=== PATIENT | female | born 2000 | race Caucasian/White ===

== ENCOUNTER 2021-12-08 15:01 | Emergency (ER) | payer OTHER, SELFPAY ==
--- NOTE | ~2021-12-08 | CT_ITS ---
EXAMINATION: CT abdomen pelvis w con DATE: 12/08/2021 17:14 INDICATION: Left lower quadrant abdominal pain TECHNIQUE: Computed tomography (CT) of the abdomen and pelvis was performed with 100 mL Omnipaque-350 intravenous contrast. Automated exposure control and iterative reconstruction technique were employe d. The dose-length product was 1592.11 mGy-cm. COMPARISON: None FINDINGS: Lung bases are clear. Heart size is normal. No pericardial or pleural effusion. Diffuse hepatic steat osis with focal sparing along the gallbladder fossa. Gallbladder, spleen, pancreas, bilateral adrenal glands and kidneys are normal. Bladder, anteverted uterus and bilateral adnexa are unremarkable. Titus els including the appendix are normal. No free intraperitoneal gas or fluid. No pathologically enlarg ed abdominal or pelvic lymphadenopathy. L5 spondylolysis bilaterally pars interarticularis defects 9 mm anterolisthesis on S1 and associated advanced degenerative disc disease. Bones are otherwise unrem arkable. IMPRESSION: 1. No acute intra-abdominal/pelvic process. 2. Diffuse hepatic steatosis. 2. L5 spondylolysis with 9 mm anterolisthesis on S1 and associated advanced L5-S1 degenerative disc d isease. Reviewed, dictated and finalized at [facility]. IMPRESSION: 1. No acute intra-abdominal/pelvic process. 2. Diffuse hepatic steatosis. 2. L5 spondylolysis with 9 mm anterolisthesis on S1 and associated advanced L5- S1 degenerative disc disease.
[2021-12-08 15:05] VITALS: BP 174/114; PULSE 93; RESP 16; TEMP 36.1; O2SAT 99
--- NOTE | 2021-12-08 15:31 | ED.FEMALEGU ---
HPI - Female Genitourinary General Chief complaint: Vaginal Bleeding Stated complaint: menstrual pain and bleeding Time Seen by Provider: 12/08/21 15:08 History of Present Illness HPI Narrative: 21-year-old female no medical problems presents emergency room for heavy vaginal bleeding. Patient states that she is currently on her menses, and has been since Sunday. Reports heavier than normal vaginal bleeding, reportedly saturating 4 pads an hour. Patient has no known history of dysfunctional uterine bleeding or PCOS. Denies any vaginal trauma. Denies being on any hormone therapy. Patient denies shortness of breath, dizziness or lightheadedness. Reports monthly menstrual cycles that are normally 7 to 10 days in length. Related Data Allergies Allergy/AdvReac Type Severity Reaction Status Date / Time No Known Allergies Allergy Verified 12/08/21 15:51 Review of Systems Review of Systems: CONSTITUTIONAL: Denies fever, chills, or sweats. EYES: Denies visual changes, redness, or discharge. ENT: Denies rhinorrhea, congestion, sore throat, or otalgia. CARDIOVASCULAR: Denies chest pain, palpitations, or edema. RESPIRATORY: Denies cough or dyspnea. GASTROINTESTINAL: Denies abdominal pain, nausea, vomiting, or diarrhea. GENITOURINARY: Reports vaginal bleeding SKIN: Denies rash or itching. MUSCULOSKELETAL: Denies back pain, joint pain, or myalgia. NEUROLOGIC: Denies headache, numbness, dizziness, or weakness. PSYCHIATRIC: Denies anxiety or depression. Exam Narrative: GENERAL: Well-appearing, well-nourished, no physical limitations, and in no acute distress. HEAD: Normocephalic, atraumatic. EYES: Conjunctivae normal, PERRLA and EOMI. CHEST: Clear to auscultation. No respiratory distress. No wheezes rales or rhonchi. No tenderness. HEART: Regular rate and rhythm. No murmur heard. Normal peripheral pulses. ABDOMEN: Soft, left lower quadrant tenderness, nondistended, normal active bowel sounds. : Small amount of clotted blood in the vaginal canal. No obvious trauma. Cervical os was closed. Vaginal rugae was pink. No masses or lesions rashes noted. BACK: No CVA tenderness EXTREMITIES: Normal range of motion. No edema. No clubbing or cyanosis SKIN: Warm, dry, no rash. No noted wounds NEURO: No focal deficits. Alert and oriented x3. FEMI. CN's II-XI intact bilaterally, normal gait PSYCH: Cooperative. Normal mood and affect. Course Vital Signs Vital signs: Vital Signs Temperature 36.1 C L 12/08/21 15:05 Pulse Rate 93 12/08/21 15:05 Respiratory Rate 16 12/08/21 15:05 Blood Pressure 174/114 H 12/08/21 15:05 Pulse Oximetry 99 12/08/21 15:05 Oxygen Delivery Room Air 12/08/21 15:05 Temperature 36.8 C 12/08/21 17:50 Pulse Rate 83 12/08/21 17:50 Respiratory Rate 18 12/08/21 17:50 Blood Pressure 169/100 H 12/08/21 17:50 Pulse Oximetry 98 12/08/21 17:50 Oxygen Delivery Room Air 12/08/21 15:05 MDM - Female Genitourinary Lab Data Result diagrams: 12/08/21 15:44 12/08/21 15:44 Labs: Lab Results 12/08/21 12/08/21 12/08/21 Range/Units 15:44 15:44 16:57 WBC 7.0 (4.5-10.0) K/mm3 RBC 4.73 (4.2-5.4) M/mm3 Hgb 14.0 (12.0-15.0) g/dL Hct 41.1 (37.0-47.0) % MCV 86.9 (80-100) fl MCH 29.6 (26-34) pg MCHC 34.1 (32-36) g/dl RDW 13.8 (11.5-14.5) % Plt Count 281 (150-375) k/mm3 MPV 8.6 (7.4-10.4) fl Immature Gran % (Auto) 0.3 (0-0.5) % Neut % (Auto) 54.4 (45.5-73.1) % Lymph % (Auto) 35.5 (18.3-44.2) % Atlantic % (Auto) 6.8 (2.6-8.5) % Eos % (Auto) 2.6 (0-4.4) % Baso % (Auto) 0.4 (0.2-1.2) % Lymph # (Auto) 2.47 (0.9-3.2) K/mm3 Atlantic # (Auto) 0.5 (0.1-0.6) K/mm3 Eos # (Auto) 0.2 (0-0.3) K/mm3 Baso # (Auto) 0.0 (0.0-0.1) K/mm3 Abs Immat Gran (auto) 0.02 (0.00-0.031) K/mm3 Absolute Neuts (auto) 3.8 (1.3-6.7) K/mm3 Absolute Nucleated RBC 0.0 (0.0-0.012) K/mm3 Nucl
[2021-12-08 15:52] LABS: Basophils Percent Auto 0.4 % (0.2-1.2); Eosinophils Absolute Auto 0.2 K/mm3 (0-0.3); Eosinophils Percent Auto 2.6 % (0-4.4); Hematocrit 41.1 % (37.0-47.0); Immature Granulocyte Absolute 0.02 K/mm3 (0.00-0.031); Immature Granulocyte Percent A 0.3 % (0-0.5); Lymphocytes Absolute Auto 2.47 K/mm3 (0.9-3.2); Lymphocytes Percent Auto 35.5 % (18.3-44.2); Mean Corpuscular HGB Conc 34.1 g/dl (32-36); Mean Corpuscular Hemoglobin 29.6 pg (26-34); Mean Corpuscular Volume 86.9 fl (80-100); Mean Platelet Volume 8.6 fl (7.4-10.4); Monocytes Absolute Auto 0.5 K/mm3 (0.1-0.6); Monocytes Percent Auto 6.8 % (2.6-8.5); Neutrophils Absolute Auto 3.8 K/mm3 (1.3-6.7); Neutrophils Percent Auto 54.4 % (45.5-73.1); Platelet Count Result 281 k/mm3 (150-375); Red Blood Count 4.73 M/mm3 (4.2-5.4); Red Cell Distribution Width 13.8 % (11.5-14.5)
[2021-12-08] MEDS: SODIUM CHLORIDE 0.9% IV 1,000 ML 999 ML IV CONT (15:52)
[2021-12-08 16:08] LABS: Alanine Aminotransferase 39 U/L (6-35); Albumin Level 4.6 g/dL (3.5-5.1); Alkaline Phosphatase 72 U/L (38-126); Anion Gap 14 mmol/L (8-16); Aspartate Amino Transferase 37 U/L (14-36); Bilirubin,Total 0.6 mg/dL (0.2-1.3); Blood Urea Nitrogen 11 mg/dL (7-17); Calcium 9.5 mg/dL (8.4-10.2); Carbon Dioxide 22 mmol/L (22-30); Chloride 103 mmol/L (98-107); Estimated CRCL calculation 230 ml/min; Estimated Glomerular Filt Rate > 60; Glucose 203 mg/dL (65-110); Potassium 3.6 mmol/L (3.4-5.0); Sodium 139 mmol/L (137-145)
[2021-12-08 17:00] VITALS: BP 152/99; PULSE 86; RESP 16; TEMP 36.3; O2SAT 99
[2021-12-08 17:09] LABS: Add Urine Microscopic? YES; Appearance Urine Cloudy (Clear); Bilirubin Urine 1+ (Negative); Blood Urine 3+ (Negative); Color Urine Red (Yellow); Glucose Urine UA Negative (Negative); Ketones Urine Trace mg/dL (Negative); Leukocyte Esterase Ur Negative LEU/UL (Negative); Nitrate Urine Negative (Negative); Protein Urine 2+ mg/dL (Negative); Specific Grav Ur >= 1.030 (1.001-1.035); Urobilinogen Urine 0.2 mg/dL (<2.0); pH Urine 5.5 (5.0-9.0)
[2021-12-08 17:14] LABS: Budding Yeast Urine Present /hpf; Mucus Urine Heavy /lpf; RBC Urine >75 /hpf (0-2); Squamous Epithelial Cell Urine Many /hpf (Few)
[2021-12-08 17:50] VITALS: BP 169/100; PULSE 83; RESP 18; TEMP 36.8; O2SAT 98
== END 2021-12-08 18:05 | disposition home or self-care (01) ==
PROVIDERS: Emergency Provider Nurse Practitioner Family; PCP Family Medicine
DX: N92.1 Excessive and frequent menstruation with irregular cycle (principal); B37.3 Candidiasis of vulva and vagina; K76.0 Fatty (change of) liver, not elsewhere classified; M43.06 Spondylolysis, lumbar region; M51.37 Other intervertebral disc degeneration, lumbosacral region
CPT/HCPCS: 36415; 74177; 80053; 81001; 85025; 96360; 99284; J7030; Q9967

== ENCOUNTER 2022-09-06 21:01 | Emergency (ER) | payer OTHER, SELFPAY ==
[2022-09-06 21:26] VITALS: BP 157/102; PULSE 120; RESP 20; TEMP 36.3; O2SAT 98
[2022-09-06 21:41] LABS: Basophils Percent Auto 0.3 % (0.2-1.2); Eosinophils Absolute Auto 0.1 K/mm3 (0-0.3); Eosinophils Percent Auto 1.5 % (0-4.4); Hematocrit 41.8 % (37.0-47.0); Hemoglobin 14.2 g/dL (12.0-15.0); Immature Granulocyte Absolute 0.01 K/mm3 (0.00-0.031); Immature Granulocyte Percent A 0.1 % (0-0.5); Lymphocytes Absolute Auto 2.12 K/mm3 (0.9-3.2); Lymphocytes Percent Auto 24.5 % (18.3-44.2); Mean Corpuscular Hemoglobin 29.2 pg (26-34); Mean Platelet Volume 8.5 fl (7.4-10.4); Monocytes Absolute Auto 0.5 K/mm3 (0.1-0.6); Monocytes Percent Auto 5.5 % (2.6-8.5); Neutrophils Absolute Auto 5.9 K/mm3 (1.3-6.7); Neutrophils Percent Auto 68.1 % (45.5-73.1); Platelet Count Result 297 k/mm3 (150-375); Red Blood Count 4.86 M/mm3 (4.2-5.4); Red Cell Distribution Width 13.1 % (11.5-14.5); White Blood Count 8.7 K/mm3 (4.5-10.0)
[2022-09-06 21:48] LABS: Appearance Urine Turbid (Clear); Bacteria Urine 3+ /hpf; Bilirubin Urine Negative (Negative); Blood Urine Negative (Negative); Color Urine Yellow (Yellow); Glucose Urine UA Negative (Negative); Ketones Urine Negative (Negative); Leukocyte Esterase Ur 1+ LEU/UL (Negative); Nitrate Urine Negative (Negative); Non Pathogenic Casts 0-2; Protein Urine Trace mg/dL (Negative); Specific Grav Ur 1.023 (1.001-1.035); Squamous Epithelial Cell Urine Many /hpf (Few)
[2022-09-06 21:52] LABS: Alanine Aminotransferase 38 U/L (6-35); Albumin Level 4.5 g/dL (3.5-5.1); Alkaline Phosphatase 55 U/L (38-126); Anion Gap 9 mmol/L (8-16); Aspartate Amino Transferase 29 U/L (14-36); Bilirubin,Total 0.5 mg/dL (0.2-1.3); Blood Urea Nitrogen 13 mg/dL (7-17); Carbon Dioxide 27 mmol/L (22-30); Chloride 104 mmol/L (98-107); Estimated CRCL calculation 166 ml/min; Estimated Glomerular Filt Rate > 60; Glucose 222 mg/dL (65-110); Lipase 41 U/L (23-300); Potassium 4.3 mmol/L (3.4-5.0); Sodium 140 mmol/L (137-145)
[2022-09-06 22:13] LABS: Add Urine Microscopic? YES
[2022-09-06] MEDS: SODIUM CHLORIDE 0.9% IV 2,000 ML 999 ML IV CONT (23:21)
[2022-09-06] MEDS: ONDANSETRON INJ 4 MG/2 ML VIAL IV PUSH (23:21)
--- NOTE | 2022-09-06 23:51 | ED.ABDPAIN ---
HPI - Abdominal Pain General Chief Complaint: Abdominal Pain Stated Complaint: abd pain Time Seen by Provider: 09/06/22 23:10 History of Present Illness HPI narrative: This is a 22-year-old female, with past history of diabetes and degenerative disc disease, who presents to the emergency department complaining of diffuse abdominal cramping and pain. The patient states she woke approximately 6 hours ago and noted diffuse abdominal pain and cramping, rated 8/10. This gradually improved to 6/10 on arrival. This is associated with nausea but she denies vomiting. She has been able to pass gas and stool with her most recent bowel movement while here in the emergency department. She admits using marijuana today and denies known sick contacts. Related Data Home Medications Medication Instructions Recorded Confirmed bupropion HCl 150 mg 24 hr tablet, mg PO 09/06/22 extended release buspirone 7.5 mg tablet mg 09/06/22 cyclobenzaprine 10 mg tablet mg 09/06/22 diclofenac sodium 75 mg mg PO 09/06/22 tablet,delayed release dulaglutide 0.75 mg/0.5 mL mg subcut 09/06/22 [facility] glycopyrrolate 1 mg tablet mg 09/06/22 linagliptin 5 mg tablet (Tradjenta) mg 09/06/22 losartan 50 mg tablet mg 09/06/22 pantoprazole 40 mg tablet,delayed mg PO 09/06/22 09/06/22 release semaglutide 3 mg tablet (Rybelsus) mg PO 09/06/22 semaglutide 3 mg tablet (Rybelsus) mg PO 09/06/22 trazodone 50 mg tablet mg 09/06/22 Allergies Allergy/AdvReac Type Severity Reaction Status Date / Time No Known Allergies Allergy Verified 09/06/22 23:01 Review of Systems Review of Systems: CONSTITUTIONAL: Denies fever, chills, or sweats. CARDIOVASCULAR: Denies chest pain, palpitations, or edema. RESPIRATORY: Denies cough or dyspnea. GASTROINTESTINAL: Diffuse abdominal pain, cramping, and nausea denies vomiting, or diarrhea. GENITOURINARY: Denies dysuria or hematuria. SKIN: Denies rash or itching. MUSCULOSKELETAL: Denies back pain, joint pain, or myalgia. NEUROLOGIC: Denies headache, numbness, dizziness, or weakness. PSYCHIATRIC: Denies anxiety or depression. PMFSH Past Medical History Medical History (Updated 09/07/22 @ 03:43 by Kristian Brandt MD) Degenerative disc disease Type 2 diabetes mellitus Social History Social History (Updated 09/06/22 @ 23:54 by Kristian Brandt MD) Smoking status: Never smoker Alcohol intake: current Substance use: current Substance use type: marijuana Exam Narrative: GENERAL: Well-developed, well-nourished, and in no acute distress. HEAD: Normocephalic, atraumatic. EYES: PERRLA and EOMI. ENT: Nares clear, no rhinorrhea or epistaxis. Mucous membranes moist. Oropharynx without tonsillar hypertrophy exudate or other lesions. CHEST: Clear to auscultation. No respiratory distress. No wheezes rales or rhonchi HEART: Regular rate and rhythm. No murmur heard. Normal peripheral pulses. ABDOMEN: Diffuse mild tenderness to palpation, without rebound or guarding, otherwise soft,, nondistended, normal active bowel sounds. No CVA tenderness to palpation. EXTREMITIES: Normal range of motion. No edema. SKIN: Warm, dry, no rash. NEURO: No focal deficits. Alert and oriented x3. PSYCH: Normal mood and affect. Course Course Emergency Course: 23:50 - UA demonstrates white blood cells and RBCs with leukocyte esterase positive but no nitrates and squamous cells. 00:59 - CBC unremarkable. Chemistries demonstrate hyperglycemia with glucose of 222, but is otherwise unremarkable. The patient has not been sexually active with male partners for the past 2 years. My suspicion for is low. I suspect the patient's nausea and vomiting may be related to cannabis hyperemesis versus mild gastroenteritis. Will discharge with primary care follow-up. Discussed return and emergency precautions including signs/symptoms of acute abdomen and bowel obstruction. The patient
[2022-09-07 01:32] VITALS: BP 134/101; PULSE 90; RESP 20; O2SAT 98
[2022-09-07 01:59] VITALS: BP 136/95; PULSE 101; RESP 16; O2SAT 99
== END 2022-09-07 02:01 | disposition home or self-care (01) ==
PROVIDERS: Emergency Provider Preventive Medicine Aerospace Medicine; PCP Family Medicine
DX: K52.9 Noninfective gastroenteritis and colitis, unspecified (principal); R10.84 Generalized abdominal pain; E11.9 Type 2 diabetes mellitus without complications; Z79.85 Long-term (current) use of injectable non-insulin antidiabetic drugs; Z79.84 Long term (current) use of oral hypoglycemic drugs
CPT/HCPCS: 36415; 80053; 81001; 83690; 85025; 87086; 87088; 96361; 96374; 99284; J2405; J7030

== ENCOUNTER 2022-09-30 08:45 | Emergency (ER) | payer OTHER, SELFPAY ==
--- NOTE | ~2022-09-30 | CT_ITS ---
EXAMINATION: CT abdomen pelvis wo con DATE: 09/30/2022 11:19 INDICATION: Left flank pain TECHNIQUE: Computed tomography (CT) of the abdomen and pelvis was performed without intravenous contr ast. Automated exposure control and iterative reconstruction technique were employed. Exam dose: 160 9.14 mGy-cm total exam DLP. COMPARISON: 12/08/2021 CT abdomen pelvis FINDINGS: There is mild patchy left lower lobe and lesser right basilar lower lobe pulmonary infiltra te and/or atelectasis. Normal heart size. No pericardial or pleural effusion. No hepatic, splenic, pancreatic, and adrenal or renal space-occupying mass lesion is detected. There is mild left hydroureteronephrosis and left peripelvic and periureteral fat stranding suggestin g the left pyelonephritis or possibly recently passed renal calculus. No urinary tract calculus is no beth at the kidneys, ureters or urinary bladder. The urinary bladder, uterus and adnexal areas are unr emarkable. Normal caliber of the abdominal aorta. No intraperitoneal or retroperitoneal or pelvic mass lesion or adenopathy or ascites. No bowel obstruction or intraperitoneal free air. Small fat-containing umbilical hernia. Bilateral L4 and L5 pars interarticularis defects. There is borderline grade 2/grade 3 anterolisthesi s and severe degenerative disc disease at L5-S1. IMPRESSION: Mild left hydroureteronephrosis and left peripelvic and periureteral stranding. No urina ry tract calculus is evident. The findings may be due to recently passed left urinary tract calculus or left sided urinary tract infection Bilateral L4 and L5 spondylolysis with borderline grade 2/grade 3 anterolisthesis and severe degenera tive disease at L5-S1 Reviewed, dictated and finalized at [facility]. Reviewed, dictated and finalized at [facility]. IMPRESSION: Mild left hydroureteronephrosis and left peripelvic and periureter al stranding. No urinary tract calculus is evident. The findings may be due to recently passed left urinary tract calculus or left sided urinary tract infecti on Bilateral L4 and L5 spondylolysis with borderline grade 2/grade 3 anterolisthes is and severe degenerative disease at L5-S1
[2022-09-30 08:51] VITALS: BP 145/101; PULSE 120; RESP 18; TEMP 36.5; O2SAT 99
[2022-09-30 09:25] LABS: Basophils Percent Auto 0.4 % (0.2-1.2); Eosinophils Absolute Auto 0.1 K/mm3 (0-0.3); Eosinophils Percent Auto 1.1 % (0-4.4); Hematocrit 42.2 % (37.0-47.0); Hemoglobin 14.2 g/dL (12.0-15.0); Immature Granulocyte Absolute 0.03 K/mm3 (0.00-0.031); Immature Granulocyte Percent A 0.3 % (0-0.5); Immature Platelet Fraction Pct 1.4 % (0.9-11.2); Lymphocytes Absolute Auto 1.75 K/mm3 (0.9-3.2); Lymphocytes Percent Auto 16.5 % (18.3-44.2); Mean Corpuscular HGB Conc 33.6 g/dl (32-36); Mean Corpuscular Hemoglobin 29.1 pg (26-34); Mean Corpuscular Volume 86.5 fl (80-100); Mean Platelet Volume 9.2 fl (7.4-10.4); Monocytes Absolute Auto 0.6 K/mm3 (0.1-0.6); Monocytes Percent Auto 5.6 % (2.6-8.5); Neutrophils Absolute Auto 8.1 K/mm3 (1.3-6.7); Neutrophils Percent Auto 76.1 % (45.5-73.1); Platelet Count Result 380 k/mm3 (150-375); Red Blood Count 4.88 M/mm3 (4.2-5.4); Red Cell Distribution Width 12.7 % (11.5-14.5); White Blood Count 10.6 K/mm3 (4.5-10.0)
[2022-09-30 09:32] LABS: Lactic Acid Reflex 1.5 mmol/L (0.7-2.0)
[2022-09-30 09:42] LABS: Alanine Aminotransferase 29 U/L (6-35); Albumin Level 4.8 g/dL (3.5-5.1); Alkaline Phosphatase 66 U/L (38-126); Anion Gap 7 mmol/L (8-16); Aspartate Amino Transferase 32 U/L (14-36); Bilirubin,Total 0.8 mg/dL (0.2-1.3); Blood Urea Nitrogen 10 mg/dL (7-17); Calcium 9.3 mg/dL (8.4-10.2); Carbon Dioxide 25 mmol/L (22-30); Chloride 105 mmol/L (98-107); Estimated CRCL calculation 189 ml/min; Estimated Glomerular Filt Rate > 60; Glucose 177 mg/dL (65-110); Lipase 38 U/L (23-300); Potassium 4.7 mmol/L (3.4-5.0); Sodium 137 mmol/L (137-145)
--- NOTE | 2022-09-30 10:06 | ED.BACK ---
HPI - Back Pain/Injury General Chief Complaint: Back Pain/Injury Stated Complaint: left flank pain Time Seen by Provider: 09/30/22 08:48 History of Present Illness HPI Narrative: 22-year-old female presented the emergency department for evaluation of left flank pain. Patient reports that the symptoms started approximately 2 days ago and have been worsening. Patient states that she does have a history of kidney stones but thought that the pain may have been related to her chronic back issues. Patient denies any hematuria or pain with urination. Patient has nausea without vomiting. Patient states that the pain is continued to worsen so she presented to the ED for evaluation. Patient was tearful at time of examination. Related Data Home Medications Medication Instructions Recorded Confirmed bupropion HCl 150 mg 24 hr tablet, mg PO 09/06/22 extended release buspirone 7.5 mg tablet mg 09/06/22 cyclobenzaprine 10 mg tablet mg 09/06/22 diclofenac sodium 75 mg mg PO 09/06/22 tablet,delayed release dulaglutide 0.75 mg/0.5 mL mg subcut 09/06/22 subcutaneous [facility] glycopyrrolate 1 mg tablet mg 09/06/22 linagliptin 5 mg tablet (Tradjenta) mg 09/06/22 losartan 50 mg tablet mg 09/06/22 pantoprazole 40 mg tablet,delayed mg PO 09/06/22 09/06/22 release semaglutide 3 mg tablet (Rybelsus) mg PO 09/06/22 semaglutide 3 mg tablet (Rybelsus) mg PO 09/06/22 trazodone 50 mg tablet mg 09/06/22 Allergies Allergy/AdvReac Type Severity Reaction Status Date / Time No Known Allergies Allergy Verified 09/06/22 23:01 Review of Systems Review of Systems: All systems reviewed & are unremarkable except as noted in HPI and below PMFSH Past Medical History Medical History (Updated 09/30/22 @ 17:13 by Anant Rivas MD) Degenerative disc disease Type 2 diabetes mellitus Social History Social History (Updated 09/06/22 @ 23:54 by Kristian Brandt MD) Smoking status: Never smoker Alcohol intake: current Substance use: current Substance use type: marijuana Exam Narrative: APPEARANCE: Tearful and uncomfortable appearing HEAD: normocephalic, atraumatic. EYES: PERRLA/EOMI, conjunctivae clear. NOSE: Normal no drainage NECK: Supple. No adenopathy, no masses. RESPIRATORY: Airway patent, respirations nonlabored. Clear to auscultation bilaterally, no rales, rhonchi, wheezing. CARDIOVASCULAR: Regular rate and rhythm without murmurs rubs or gallops. ABDOMINAL: Soft, nontender, nondistended, normal bowel sounds MUSCULOSKELETAL: Moves all extremities. Strength/ROM intact, No edema, No calf tenderness. NEURO: Alert. Cranial nerves II through XII intact. Grossly intact SKIN: Warm, dry. Normal Color Course Course Emergency Course: 22-year-old female presented to the emergency department for evaluation of left flank pain. Patient was treated with IV Dilaudid and Zofran along with IV fluids. Patient does have a leukocytosis of 10.6 but is afebrile. Patient had no significant abnormalities on her CMP but did have greater than 100 reds and grade 100 white blood cells on her UA. CT scan was ordered to evaluate for ureteral calculi. CT scan did show evidence of a kidney infection but no ureteral calculi. Patient was treated with IV Rocephin for her urinary tract infection. Patient was disowned home with Keflex and Pyridium. Both patient and family were updated on the results of the work-up and plan for treatment at home. Patient was well-appearing and improved at time of discharge from the emergency department. Vital Signs Vital signs: Vital Signs Temperature 97.7 F 09/30/22 08:51 Pulse Rate 120 H 09/30/22 08:51 Respiratory Rate 18 09/30/22 08:51 Blood Pressure 145/101 H 09/30/22 08:51 Pulse Oximetry 99 09/30/22 08:51 Oxygen Delivery Room Air 09/30/22 08:51 Temperature 97.7 F 09/30/22 08:51 Pulse Rate 105 H 09/30/22 13:57 Respiratory Rate 18 09/30/22
[2022-09-30] MEDS: ONDANSETRON INJ 4 MG/2 ML VIAL IV PUSH (10:10)
[2022-09-30] MEDS: HYDROmorphone HCL INJ (*CRX) 1 MG/ML SYR IV PUSH (10:11)
[2022-09-30 10:56] LABS: Appearance Urine Turbid (Clear); Bacteria Urine 4+ /hpf; Bilirubin Urine Negative (Negative); Blood Urine 3+ (Negative); Color Urine Yellow (Yellow); Glucose Urine UA Negative (Negative); Ketones Urine Negative (Negative); Leukocyte Esterase Ur 3+ LEU/UL (Negative); Need Manual Microscopic Reviewed; Nitrate Urine Positive (Negative); Non Pathogenic Casts 0-2; Protein Urine 3+ mg/dL (Negative); RBC Urine >100 /hpf (0-2); Specific Grav Ur 1.015 (1.001-1.035); Squamous Epithelial Cell Urine Moderate /hpf (Few); WBC Urine >100 /hpf; pH Urine 5.5 (5.0-9.0)
[2022-09-30 10:57] LABS: Add Urine Microscopic? YES
[2022-09-30] MEDS: SODIUM CHLORIDE 0.9% IV 1,000 ML 999 ML IV CONT (13:20)
[2022-09-30 13:57] VITALS: BP 164/98; PULSE 105; RESP 18; O2SAT 100
== END 2022-09-30 13:44 | disposition home or self-care (01) ==
PROVIDERS: Emergency Provider Emergency Medicine; PCP Family Medicine
DX: R10.9 Unspecified abdominal pain (principal); E11.9 Type 2 diabetes mellitus without complications; Z79.85 Long-term (current) use of injectable non-insulin antidiabetic drugs; Z79.84 Long term (current) use of oral hypoglycemic drugs; R82.998 Other abnormal findings in urine; M51.37 Other intervertebral disc degeneration, lumbosacral region; M47.816 Spondylosis without myelopathy or radiculopathy, lumbar region; N13.30 Unspecified hydronephrosis
CPT/HCPCS: 36415; 74176; 80053; 81001; 81025; 83605; 83690; 85025; 85055; 87077; 87086; 87186; 96365; 96375; 99284; J0696; J1170; J2405; J7030